=== PATIENT | female | born 1965 | race Caucasian/White ===

== ENCOUNTER 2017-06-02 21:01 | Emergency (ER) | payer BC ==
[2017-06-02] MEDS ORDERED: Famotidine 20 MG Tab PO ONE (21:16)
[2017-06-02] MEDS ORDERED: diphenhydrAMINE 50 MG Cap PO ONE (21:16)
[2017-06-02] MEDS ORDERED: predniSONE 20 MG Tab PO ONE (21:16)
--- NOTE | 2017-06-02 21:20 | EDM.PDOC ---
ED HPI GENERAL MEDICAL PROBLEM - General Chief Complaint: Allergic Reaction Stated Complaint: ALLERGIC REACTION,SWOLLEN TONGUE Time Seen by Provider: 06/02/17 21:05 Source of Information: Reports: Patient History Limitations: Reports: No Limitations - History of Present Illness INITIAL COMMENTS - FREE TEXT/NARRATIVE: Patient is a 51-year-old female who presents to the ED complaining of tongue being swollen with itchy hands. This started approximately 15 minutes ago with unclear etiology. Patient ate dinner approximately 7:00 today with nothing unusual. Prior to onset of symptoms patient was drinking angie zayra and had just washed her hands with normal soap. She's never had symptoms as such. But notes that at times her eyelid becomes little puffy and she take Sudafed. She did take Sudafed 2 with onset of symptoms with no resolution.Denies any difficulty swallowing, shortness of breath, coughing, wheezing, or known precipitating factors. 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 (see below) Other Treatments TOUR DRIVER: sudafed Oral/Mouth Pain Score (Numeric/FACES): 3 - Related Data Allergies Allergy/AdvReac Type Severity Reaction Status Date / Time amoxicillin [From Augmentin] Allergy Diarrhea Verified 06/02/17 21:14 clarithromycin [From Biaxin] Allergy Diarrhea Verified 06/02/17 21:14 clavulanic acid Allergy Diarrhea Verified 06/02/17 21:14 [From Augmentin] eerthyromycin Allergy Diarrhea Uncoded 06/02/17 21:14 Home Meds: Home Meds Calcium Carb & Citrate/Vit D3 [Calcium + D3 ER Tablet] 1 tab PO DAILY 06/02/17 [ History] Cyanocobalamin (Vitamin B12) [Vitamin B12] 1,000 mcg PO DAILY 06/02/17 [History] EPINEPHrine [Epipen 2-Juan David] 0.3 mg IJ ASDIRECTED PRN #2 pen 06/02/17 [Rx] Fluticasone Propionate [Flonase] 1 spray INH BID 06/02/17 [History] Multivitamins [Tab-A-Nirmal] 1 tab PO DAILY 06/02/17 [History] Norgestimate-Ethinyl Estradiol [Ortho Tri-Cyclen 28 Tablet] 1 tab PO DAILY 06/02 [History] [place]-3 Fatty Acids [[place]-3] 1 gram PO DAILY 06/02/17 [History] Prednisone [IMW: predniSONE] 40 mg PO WITHBREAKFAST #8 tab 06/02/17 [Rx] Pseudoephedrine HCl [Sudafed] 30 mg PO ASDIRECTED 06/02/17 [History] Ranitidine HCl [Zantac] 150 mg PO ASDIRECTED 06/02/17 [History] Past Medical History Respiratory History: Reports: Other (See Below) Other Respiratory History: seasonal allergies - Past Surgical History HEENT Surgical History: Reports: Adenoidectomy, Tonsillectomy Social & Family History - Tobacco Use Smoking Status *Q: Never Smoker - Caffeine Use Caffeine Use: Reports: Tea - Recreational Drug Use Recreational Drug Use: No ED ROS ALLERGIC REACTION - Review of Systems Review Of Systems: ROS reveals no pertinent complaints other than HPI. ED EXAM GENERAL NO PERIP PULSE - Physical Exam Exam: See Below Exam Limited By: No Limitations General Appearance: Alert, WD/WN, No Apparent Distress Ears: Hearing Grossly Normal Nose: Normal Inspection Throat/Mouth: Normal Inspection, Normal Voice, No Airway Compromise, Other (Per patient tongue is mildly swollen.) Head: Atraumatic, Normocephalic Neck: Normal Inspection, Supple, Non-Tender, Full Range of Motion Respiratory/Chest: No Respiratory Distress, Lungs Clear, Normal Breath Sounds, No Accessory Muscle Use Cardiovascular: Normal Peripheral Pulses, Regular Rate, Rhythm GI/Abdominal: Normal Bowel Sounds, Soft, Non-Tender, No Organomegaly Back Exam: Normal Inspection Extremities: Normal Inspection Neurological: Alert, Oriented, CN II-XII Intact, Normal Cognition Psychiatric: Normal Affect, Normal Mood Skin Exam: Warm, Dry, Intact, Normal Color, No Rash Course - Vital Signs Last Recorded V/S: Last Vital Signs Temp 96.9 F 06/02/17 21:08 Pulse 89 06/02/17 21:08 Resp 20 06/02/17 21:08 BP 138/82 06/02/17 21:08 Pulse Ox 100 06/02/17 21:08 - Orders/Labs/Meds Meds: Medications Discontinued Medications Generic Name Dose Route Start Last Admin Trade Name Freq PRN Reason Stop Dose Admin Diphenhydramine HCl 50 mg 06/02/17 21:16 06/02/17 21:37 Benadryl PO 06/02/17 21:17 50 mg ONETIME ONE Administration Famotidine 40 mg 06/02/17 21:16 06/02/17 21:37 Pepcid PO 06/02/17 21:17 40 mg ONETIME ONE Administration Prednisone 40 mg 06/02/17 21:16 06/02/17 21:37 Prednisone PO 06/02/17 21:17 40 mg ONETIME ONE Administration - Re-Assessments/Exams Free Text/Narrative Re-Assessment/Exam: Ordered Benadryl 50 mg by mouth, Pepcid 20 mg by mouth, and prednisone 40 mg by mouth. Vital signs are stable. Patient is in no acute distress. Unclear etiology current complaint. No rash present. Suspect allergic reaction with swollen tongue and itching hands. 06/02/17 22:05 Reassessment, patient's symptoms are improving. She is ready be discharged home. Discussed return precautions with the patient. Discharge instructions as documented. Departure - Departure Time of Disposition: 22:06 Disposition: Home, Self-Care 01 Condition: Good Clinical Impression: Allergic reaction Qualifiers: Encounter type: initial encounter Qualified Code(s): T78.40XA - Allergy, unspecified, initial encounter - Discharge Information Prescriptions: EPINEPHrine [Epipen 2-Juan David] 0.3 mg IJ ASDIRECTED PRN #2 pen PRN Reason: Allergies Prednisone [IMW: predniSONE] 40 mg PO WITHBREAKFAST #8 tab Instructions: Allergies, Adult, [id number], Anaphylactic Reaction, Adult, Allergies, Adult Referrals: Ramirez Do MD [Primary Care Provider] - Forms: ED Department Discharge Additional Instructions: Take prednisone 40 mg every morning for the next 4 days. Pepcid 40 mg every day for the next 4 days. Utilize Benadryl 50 mg every 6 hours as needed for itching. If you experience an anaphylactic reaction with sensation throat is swelling shut, difficulty breathing, wheezing, rash, swelling, utilize the EpiPen injector 1. May repeat in 5-15 minutes if no improvements. Seek medical care at the closest emergency room for evaluation. Keep detailed log on any foods, lotions, medicines, supplements, you may have come in contact with that cause irritation. Refrain from anything that does cause allergic symptoms as such.
== END 2017-06-02 22:43 | disposition home or self-care (01) ==
LOC: JD.ED 21:01
DX: T78.40XA Allergy, unspecified, initial encounter (principal); Z88.1 Allergy status to other antibiotic agents; Z79.899 Other long term (current) drug therapy
CPT/HCPCS: 99283; A9270